=== PATIENT | female | born 1990 | race African-American/Black ===

== ENCOUNTER 2016-12-03 11:33 | Emergency (ER) | payer SELFPAY ==
[2016-12-03 11:39] VITALS: BP 125/82
[2016-12-03] MEDS ORDERED: OXYCODONE HCL IR 5 MG TABLET PO ONE (12:14)
--- NOTE | 2016-12-03 12:15 | ER Document Report ---
ED GI/ - General Chief Complaint: Vaginal Bleeding Stated Complaint: HEAVY VAGINAL BLEEDING Mode of Arrival: Ambulatory Information source: Patient Notes: Patient presents complaining of vaginal bleeding for the past 3 days that is typical of her usual menstrual cycle. Patient states she does occasionally pass clots which is typical of her usual menses. Patient denies any urinary symptoms, vaginal discharge or any concern for pelvic infection. Patient states that she has a history of ovarian cysts and occasionally will have pelvic pain like this with her menstrual cycles. Patient suspects that she may have an ovarian cyst. Patient states that she does have a supervisor cellars appointment in 4 days. Patient states that she took Tylenol at home this morning at 10:30 without relief of her pain symptoms. TRAVEL OUTSIDE OF THE [place] IN LAST 30 DAYS: No - HPI Patient complains to provider of: Pelvic pain, Vaginal bleeding. No: Vaginal discharge Onset: Other - 3 days Timing/Duration: Persistent Quality of pain: Cramping Pain Level: 4 Location: Pelvis Vaginal bleeding (Compared to normal period): Similar, Passing clots Associated symptoms: denies: Dysuria, Fever, Nausea, Urinary hesitancy, Urinary frequency, Urinary retention, Urinary urgency, Vaginal discharge, Vomiting Exacerbated by: Denies Relieved by: Denies Similar symptoms previously: Yes Recently seen / treated by doctor: No - Related Data Allergies/Adverse Reactions: ibuprofen [From Motrin] Allergy (Severe, Verified 07/15/16 12:12) Hives tramadol [Tramadol] Allergy (Unknown, Verified 07/15/16 12:12) doxycycline [Doxycycline] Adverse Reaction (Verified 07/15/16 12:12) VOMITING Past Medical History - General Information source: Patient Last Menstrual Period: current - Social History Smoking Status: Current Every Day Smoker Chew tobacco use (# tins/day): No Frequency of alcohol use: Social Drug Abuse: None Occupation: none Family History: Arthritis, CAD, CVA, DM, Hyperlipidemia, Hypertension, Malignancy, Thyroid Disfunction. denies: COPD Patient has suicidal ideation: No Patient has homicidal ideation: No - Past Medical History Cardiac Medical History: Denies: Hx Heart Attack, Hx Hypertension Neurological Medical History: Reports: Hx Migraine. Denies: Hx Seizures Renal/ Medical History: Reports: Hx Ovarian Cysts. Denies: Hx Peritoneal Dialysis Musculoskeltal Medical History: Denies Hx Arthritis, Reports Hx Musculoskeletal Trauma Psychiatric Medical History: Reports: Hx Anxiety Past Surgical History: Reports: Hx Abdominal Surgery - exploratory lap, Hx Section - 08/19/2009, 12/06/11, Hx Gynecologic Surgery - ceclage x2 - Immunizations Immunizations up to date: Yes Hx Diphtheria, Pertussis, Tetanus Vaccination: Yes Review of Systems - Review of Systems Constitutional: No symptoms reported. denies: Fever, Recent illness EENT: No symptoms reported Cardiovascular: No symptoms reported. denies: Chest pain, Syncope Respiratory: No symptoms reported. denies: Cough, Short of breath Gastrointestinal: Abdominal pain - Lower pelvic. denies: Diarrhea, Nausea, Vomiting Genitourinary: No symptoms reported. denies: Dysuria, Flank pain Female Genitourinary: Vaginal bleeding. denies: , Vaginal discharge Musculoskeletal: No symptoms reported. denies: Back pain Skin: No symptoms reported Hematologic/Lymphatic: No symptoms reported Neurological/Psychological: No symptoms reported Physical Exam - Vital signs Vitals: Temp Pulse Resp BP Pulse Ox 97.7 F 76 16 125/82 100 12/03/16 11:36 12/03/16 11:36 12/03/16 11:36 12/03/16 11:36 12/03/16 11:36 - General General appearance: Appears well, Alert In distress: None - HEENT Head: Normocephalic, Atraumatic Eyes: Normal Nasal: Normal Mouth/Lips: Normal Mucous membranes: Normal Neck: Normal, Supple. No: Lymphadenopathy - Respiratory Respiratory status: No respiratory distress Chest status: Nontender Breath sounds: Normal. No: Rales, Rhonchi, Stridor, Wheezing Chest palpation: Normal - Cardiovascular Rhythm: Regular Heart sounds: S1 appreciated, S2 appreciated Murmur: No - Abdominal Inspection: Normal Distension: No distension Bowel sounds: Normal Tenderness: Tender - Lower pelvic tenderness Organomegaly: No organomegaly - Back Back: Normal, Nontender. No: CVA tenderness, Vertebra tenderness - Extremities General upper extremity: Normal inspection, Normal strength General lower extremity: Normal inspection, Normal strength - Neurological Neuro grossly intact: Yes Cognition: Normal Reagan Coma Scale Eye Opening: Spontaneous [place] Coma Scale Verbal: Oriented [place] Coma Scale Motor: Obeys Commands [place] Coma Scale Total: 15 - Psychological Associated symptoms: Normal affect, Normal mood - Skin Skin Temperature: Warm Skin Moisture: Dry Skin Color: Normal Course - Re-evaluation Re-evalutation: 12/03/16 13:[address] Espinosa regarding patient presentation and plan for discharge. Agrees with discharge plan of care. Review of previous ER visits demonstrates that patient has been evaluated in the past for chronic painful conditions and was sent a certified letter at home advising patient of our chronic pain control policy. 12/03/16 14:07 Patient requesting narcotic pain medication for her symptoms. Patient advised that I will be unable to manage her chronic pain due to her ovarian cysts and dysmenorrhea with narcotic pain medication and that patient will need to take Tylenol [id number] as directed given her allergies to tramadol as well as NSAIDs. Patient upset regarding discharge plan of care. Patient states that she should adjusted at home since she's not getting anything here. Patient insistent that she does not have any chronic painful condition, although had previously reported to RN that she was only here for narcotic pain control for her pain that she has with her ovarian cyst. - Vital Signs Vital signs: Temp Pulse Resp BP Pulse Ox 97.7 F 76 16 125/82 100 12/03/16 11:36 12/03/16 11:36 12/03/16 11:36 12/03/16 11:36 12/03/16 11:36 - Laboratory Result Diagrams: 12/03/16 12:36 12/03/16 12:36 Laboratory results interpreted by me: Labs- Entire Visit 12/03/16 12/03/16 12/03/16 12:36 12:36 12:36 WBC 4.3 RBC 4.88 Hgb 13.5 Hct 41.7 MCV 85 MCH 27.7 MCHC 32.4 RDW 14.0 Plt Count 238 Seg Neutrophils % 42.7 Lymphocytes % 43.1 Monocytes % 12.9 Eosinophils % 0.8 Basophils % 0.5 Absolute Neutrophils 1.8 Absolute Lymphocytes 1.9 Absolute Monocytes 0.6 Absolute Eosinophils 0.0 Absolute Basophils 0.0 Sodium 144.6 Potassium 4.3 Chloride 105 Carbon Dioxide 27 Anion Gap 13 BUN 10 Creatinine 0.73 Est GFR ( Amer) > 60 Est GFR (Non-Af Amer) > 60 Glucose 87 Calcium 9.9 Total Bilirubin 0.8 Direct Bilirubin 0.2 Indirect Bilirubin Not Reportable Neonat Total Bilirubin Not Reportable AST 24 ALT 31 Alkaline Phosphatase 71 Total Protein 7.6 Albumin 4.6 Serum HCG, Qual NEGATIVE 12/03/16 18:49 Labs- Entire Visit 12/03/16 12/03/16 12/03/16 12:36 12:36 12:36 WBC 4.3 RBC 4.88 Hgb 13.5 Hct 41.7 MCV 85 MCH 27.7 MCHC 32.4 RDW 14.0 Plt Count 238 Seg Neutrophils % 42.7 Lymphocytes % 43.1 Monocytes % 12.9 Eosinophils % 0.8 Basophils % 0.5 Absolute Neutrophils 1.8 Absolute Lymphocytes 1.9 Absolute Monocytes 0.6 Absolute Eosinophils 0.0 Absolute Basophils 0.0 Sodium 144.6 Potassium 4.3 Chloride 105 Carbon Dioxide 27 Anion Gap 13 BUN 10 Creatinine 0.73 Est GFR ( Amer) > 60 Est GFR (Non-Af Amer) > 60 Glucose 87 Calcium 9.9 Total Bilirubin 0.8 Direct Bilirubin 0.2 Indirect Bilirubin Not Reportable Neonat Total Bilirubin Not Reportable AST 24 ALT 31 Alkaline Phosphatase 71 Total Protein 7.6 Albumin 4.6 Serum HCG, Qual NEGATIVE Discharge - Discharge Clinical Impression: Dysmenorrhea, Hx of ovarian cyst Condition: Stable Disposition: HOME, SELF-CARE Instructions: Dysmenorrhea ([facility]), Acetaminophen Additional Instructions: Return immediately for any new or worsening symptoms Followup with your primary care provider, Dr Davis, call tomorrow to make a followup appointment Referrals: [facility] [Provider Group] - Follow up as needed
[2016-12-03 12:53] LABS: ABSOLUTE LYMPHOCYTES (AUTO) 1.9 10^3/uL (0.5-4.7); ABSOLUTE MONOCYTES (AUTO) 0.6 10^3/uL (0.1-1.4); ABSOLUTE NEUT (AUTO) 1.8 10^3/uL (1.7-8.2); BASOPHILS % (AUTO) 0.5 % (0-2); EOSINOPHILS % (AUTO) 0.8 % (0-6); HEMATOCRIT 41.7 % (36.0-47.0); HEMOGLOBIN 13.5 g/dL (12.0-15.5); HGB HCT DIFFERENCE -1.2; LYMPHOCYTES % (AUTO) 43.1 % (13-45); MEAN CORPUSCULAR HEMOGLOBIN 27.7 pg (27.0-33.4); MEAN CORPUSCULAR HGB CONC 32.4 g/dL (32.0-36.0); MEAN CORPUSCULAR VOLUME 85 fl (80-97); MONOCYTES % (AUTO) 12.9 % (3-13); RED BLOOD COUNT 4.88 10^6/uL (3.72-5.28); SEGMENTED NEUTROPHILS % (AUTO) 42.7 % (42-78); WHITE BLOOD COUNT 4.3 10^3/uL (4.0-10.5)
[2016-12-03 13:12] LABS: BLOOD UREA NITROGEN 10 mg/dL (7-20); CALCIUM 9.9 mg/dL (8.4-10.2); POTASSIUM 4.3 mmol/L (3.6-5.0)
[2016-12-03 13:48] LABS: ALANINE AMINOTRANSFERASE 31 U/L (9-52); ALBUMIN 4.6 g/dL (3.5-5.0); ALKALINE PHOSPHATASE 71 U/L (38-126); ANION GAP 13 (5-19); ASPARTATE AMINO TRANSFERASE 24 U/L (14-36); BILIRUBIN,DIRECT 0.2 mg/dL (0.0-0.4); BILIRUBIN,TOTAL 0.8 mg/dL (0.2-1.3); CARBON DIOXIDE 27 mmol/L (22-30); CHLORIDE 105 mmol/L (98-107); CREATININE RESULT 0.73 mg/dL (0.52-1.25); GLUCOSE 87 mg/dL (75-110); SODIUM 144.6 mmol/L (137-145); TOTAL PROTEIN 7.6 g/dL (6.3-8.2)
== END 2016-12-03 14:07 | disposition home or self-care (01) ==
LOC: ER 11:33
DX: N94.6 Dysmenorrhea, unspecified (principal); N83.209 Unspecified ovarian cyst, unspecified side; G89.29 Other chronic pain; R10.2 Pelvic and perineal pain; F17.200 Nicotine dependence, unspecified, uncomplicated; Z87.42 Personal history of other diseases of the female genital tract; Z98.890 Other specified postprocedural states; Z88.6 Allergy status to analgesic agent; Z88.5 Allergy status to narcotic agent
CPT/HCPCS: 36415; 80053; 84703; 85025; 99284

== ENCOUNTER 2017-12-17 09:32 | Emergency (ER) | payer SELFPAY ==
--- NOTE | 2017-12-17 09:56 | ER Document Report ---
ED GI/ - General Chief Complaint: Vaginal Bleeding Stated Complaint: VAGINAL BLEEDING, PELVIC PAIN Time Seen by Provider: 12/17/17 09:56 Mode of Arrival: Ambulatory Information source: Patient Notes: 27-year-old female complaining of heavy vaginal bleeding and severe cramps that started last night. She denies sex for 4 months, no control, smoker, no alcohol or drugs, , 2 cerclages, 2 C-sections, menses started at the appropriate time. No fever or chills. No vaginal discharge. She did feel like she might possibly have had a urinary tract infection with some cloudy smelly urine past few days. TRAVEL OUTSIDE OF THE [place] IN LAST 30 DAYS: No - Related Data Allergies/Adverse Reactions: ibuprofen [From Motrin] Allergy (Severe, Verified 12/17/17 09:49) Hives tramadol [Tramadol] Allergy (Unknown, Verified 12/17/17 09:49) doxycycline [Doxycycline] Adverse Reaction (Verified 12/17/17 09:49) VOMITING Past Medical History - General Information source: Patient - Social History Smoking Status: Current Every Day Smoker Chew tobacco use (# tins/day): No Frequency of alcohol use: Rare Drug Abuse: None Lives with: Family Family History: Arthritis, CAD, CVA, DM, Hyperlipidemia, Hypertension, Malignancy, Thyroid Disfunction Patient has suicidal ideation: No Patient has homicidal ideation: No Neurological Medical History: Reports: Hx Migraine Renal/ Medical History: Reports: Hx Ovarian Cysts Musculoskeltal Medical History: Reports Hx Musculoskeletal Trauma Psychiatric Medical History: Reports: Hx Anxiety Past Surgical History: Reports: Hx Abdominal Surgery - exploratory lap, Hx Section - 08/19/2009, 12/06/11, Hx Gynecologic Surgery - ceclage x2 - Immunizations Immunizations up to date: Yes Hx Diphtheria, Pertussis, Tetanus Vaccination: Yes Review of Systems - Review of Systems Constitutional: No symptoms reported EENT: No symptoms reported Cardiovascular: No symptoms reported Respiratory: No symptoms reported Gastrointestinal: No symptoms reported Genitourinary: No symptoms reported Female Genitourinary: See HPI Musculoskeletal: No symptoms reported Skin: No symptoms reported Hematologic/Lymphatic: No symptoms reported Neurological/Psychological: No symptoms reported Physical Exam - Vital signs Vitals: Temp Pulse Resp BP Pulse Ox 98.0 F 77 20 118/70 100 12/17/17 09:39 12/17/17 09:39 12/17/17 09:39 12/17/17 09:39 12/17/17 09:39 Interpretation: Normal - General General appearance: Appears well, Alert - HEENT Head: Normocephalic, Atraumatic Eyes: Normal Pupils: PERRL - Respiratory Respiratory status: No respiratory distress Chest status: Nontender Breath sounds: Normal Chest palpation: Normal - Cardiovascular Rhythm: Regular Heart sounds: Normal auscultation Murmur: No - Abdominal Inspection: Normal Distension: No distension Bowel sounds: Normal Tenderness: Tender - Mild suprapubic Organomegaly: No organomegaly - Back Back: Normal, Nontender. No: CVA tenderness - Extremities General upper extremity: Normal inspection, Nontender, Normal color, Normal ROM , Normal temperature General lower extremity: Normal inspection, Nontender, Normal color, Normal ROM , Normal temperature, Normal weight bearing. No: Homero's sign - Neurological Neuro grossly intact: Yes Cognition: Normal Orientation: AAOx4 [place] Coma Scale Eye Opening: Spontaneous [place] Coma Scale Verbal: Oriented [place] Coma Scale Motor: Obeys Commands [place] Coma Scale Total: 15 Speech: Normal Motor strength normal: LUE, RUE, LLE, RLE Sensory: Normal - Psychological Associated symptoms: Normal affect, Normal mood - Skin Skin Temperature: Warm Skin Moisture: Dry Skin Color: Normal Course - Vital Signs Vital signs: Temp Pulse Resp BP Pulse Ox 98.0 F 77 20 118/70 100 12/17/17 09:39 12/17/17 09:39 12/17/17 09:39 12/17/17 09:39 12/17/17 09:39 - Laboratory Result Diagrams: 12/17/17 10:12 Laboratory results interpreted by me: 12/17/17 12/17/17 10:12 10:12 Monocytes % 13.8 H Urine Blood LARGE H Discharge - Discharge Clinical Impression: Pelvic pain, Vaginal bleeding, Trichomonas, Bacterial vaginosis Condition: Good Disposition: HOME, SELF-CARE Instructions: Pelvic Pain ([facility]), Acetaminophen, Metronidazole ([facility]), Rocephin ( [facility]), Azithromycin ([facility]), Antinausea Medication ([facility]), Vaginosis, Bacterial ([facility] ) Additional Instructions: see director global intelligence if persists to er if worse sex partner needs treatment for trichomonas Call me in 3 hours for the gonorrhea and Chlamydia tests at [phone] Prescriptions: Hydrocodone Bit/Acetaminophen [Hydrocodon-Acetaminophen 5-325] 1 each PO Q4HP PRN #7 tablet PRN Reason: Metronidazole 500 mg PO BID #14 tablet Forms: Return to Work
[2017-12-17] MEDS ORDERED: ACETAMINOPHEN 325 MG TABLET PO ONE ×2 (10:07→10:08)
[2017-12-17 10:46] LABS: APPEARANCE,URINE CLEAR; BILIRUBIN,URINE NEGATIVE (NEGATIVE); COLOR,URINE YELLOW; GLUCOSE, URINE NEGATIVE (NEGATIVE); KETONES,URINE NEGATIVE (NEGATIVE); LEUKOCYTE ESTERASE,URINE NEGATIVE (NEGATIVE); NITRITE,URINE NEGATIVE (NEGATIVE); PROTEIN,URINE NEGATIVE (NEGATIVE); URINE SPECIFIC GRAVITY 1.024; UROBILINOGEN,URINE NEGATIVE mg/dL (<2.0)
[2017-12-17 10:57] LABS: ABSOLUTE EOSINOPHILS # (AUTO) 0.1 10^3/uL (0.0-0.6); ABSOLUTE LYMPHOCYTES (AUTO) 2.1 10^3/uL (0.5-4.7); ABSOLUTE MONOCYTES (AUTO) 0.7 10^3/uL (0.1-1.4); ABSOLUTE NEUT (AUTO) 2.3 10^3/uL (1.7-8.2); BASOPHILS % (AUTO) 0.3 % (0-2); EOSINOPHILS % (AUTO) 1.6 % (0-6); HEMOGLOBIN 13.2 g/dL (12.0-15.5); LYMPHOCYTES % (AUTO) 39.9 % (13-45); MEAN CORPUSCULAR HEMOGLOBIN 28.6 pg (27.0-33.4); MEAN CORPUSCULAR HGB CONC 33.1 g/dL (32.0-36.0); MEAN CORPUSCULAR VOLUME 86 fl (80-97); MONOCYTES % (AUTO) 13.8 % (3-13); PLATELET COUNT 267 10^3/uL (150-450); RED BLOOD COUNT 4.64 10^6/uL (3.72-5.28); RED CELL DISTRIBUTION WIDTH 13.6 % (11.5-14.0); SEGMENTED NEUTROPHILS % (AUTO) 44.4 % (42-78); TOTAL CELLS COUNTED % (AUTO) 100 %; WHITE BLOOD COUNT 5.2 10^3/uL (4.0-10.5)
[2017-12-17 11:01] LABS: BACTERIA (WET MOUNT) 4+ BACTERIA SEEN; EPITHELIALS (WET MOUNT) 4+ EPITHELIALS SEEN; RBCS (WET MOUNT) 4+ RBCS SEEN; T.VAGINALIS (WET MOUNT) TRICHOMONAS SEEN; WBCS (WET MOUNT) FEW WBCS SEEN; YEAST (WET MOUNT) NO YEAST SEEN
[2017-12-17] MEDS ORDERED: ONDANSETRON 4 MG TAB.RAPDIS PO ONE (11:21)
[2017-12-17] MEDS ORDERED: AZITHROMYCIN 250 MG TABLET PO ONE (11:21)
[2017-12-17] MEDS ORDERED: METRONIDAZOLE 500 MG TABLET PO ONE (11:21)
[2017-12-17] MEDS ORDERED: CEFTRIAXONE INJ 250 MG VIAL IM ONE (11:21)
[2017-12-17] MEDS ORDERED: HYDROCODONE/ACETAMINOPHEN 5-325 MG TABLET PO ONE (11:24)
[2017-12-17 11:44] VITALS: BP 120/72
[2017-12-17 13:01] LABS: CHLAM PCR NOT DETECTED (NOT DETECT); GON PCR NOT DETECTED (NOT DETECT)
== END 2017-12-17 11:44 | disposition home or self-care (01) ==
LOC: ER 09:32
DX: A59.00 Urogenital trichomoniasis, unspecified (principal); B96.89 Other specified bacterial agents as the cause of diseases classified elsewhere; N76.0 Acute vaginitis; R10.2 Pelvic and perineal pain; N93.8 Other specified abnormal uterine and vaginal bleeding; F17.200 Nicotine dependence, unspecified, uncomplicated
CPT/HCPCS: 99284; 96372; 36415; 87086; 87210; 84703; 85025; 81001; 87491; 87591; S0119; J0696

== ENCOUNTER 2018-02-24 12:53 | Emergency (ER) | payer SELFPAY ==
[2018-02-24 13:00] VITALS: BP 129/86
--- NOTE | 2018-02-24 13:34 | ER Document Report ---
HPI - HPI Patient complains to provider of: Swelling and pain with lymph nodes on the left side Onset: Yesterday Onset/Duration: Gradual Pain Level: 2 Context: 27-year-old female with a history of trichomonas is concerned that she might have it again because of the discharge with an odor. She also has inguinal lymph nodes and swelling on the left side that is painful. It got worse today. She works at [employer]. Associated Symptoms: None Exacerbated by: Movement, Walking Relieved by: Denies Similar symptoms previously: No Recently seen / treated by doctor: No - ROS ROS below otherwise negative: Yes Systems Reviewed and Negative: Yes All other systems reviewed and negative - REPRODUCTIVE Reproductive: DENIES: : Past Medical History - General Information source: Patient - Social History Smoking Status: Never Smoker Frequency of alcohol use: None Drug Abuse: None Lives with: Family Family History: Arthritis, CAD, CVA, DM, Hyperlipidemia, Hypertension, Malignancy, Thyroid Disfunction Neurological Medical History: Reports: Hx Migraine Renal/ Medical History: Reports: Hx Ovarian Cysts Musculoskeltal Medical History: Reports Hx Musculoskeletal Trauma Psychiatric Medical History: Reports: Hx Anxiety Past Surgical History: Reports: Hx Abdominal Surgery - exploratory lap, Hx Section - 08/19/2009, 12/06/11, Hx Gynecologic Surgery - ceclage x2 - Immunizations Immunizations up to date: Yes Hx Diphtheria, Pertussis, Tetanus Vaccination: Yes Vertical Provider Document - CONSTITUTIONAL Agree With Documented VS: Yes Exam Limitations: No Limitations General Appearance: No Apparent Distress - INFECTION CONTROL TRAVEL OUTSIDE OF THE [place] IN LAST 30 DAYS: No - GI/ABDOMEN Gastrointestinal: Abdomen Soft, Abdomen Non-Tender, No Organomegaly Notes: Few left inguinal lymph nodes - REPRODUCTIVE Notes: Left inferior introitus Bartholin's gland abscess - NEURO Level of Consciousness: Alert - DERM Integumentary: No Rash Course - Re-evaluation Re-evalutation: 02/24/18 15:09 wet mount shows BV, possilble uti, cx semt. pt wants to take tx for possible gonorrhea and chalmydia - Vital Signs Vital signs: Temp Pulse Resp BP Pulse Ox 98.1 F 112 H 16 129/86 H 98 02/24/18 12:58 02/24/18 12:58 02/24/18 12:58 02/24/18 12:58 02/24/18 12:58 Procedures - Incision and Drainage Left Labia Time completed: 15:02 Type: Simple Anesthetic type: 1% Lidocaine mL's of anesthetic: 3 Blade size: 11 I&D procedure: Iodoform packing placed Incision Method: Incision made by scalpel Amount/type of drainage: large pus Discharge - Discharge Clinical Impression: I and D bartholin abscess, Bacterial vaginosis Urinary tract infection Qualifiers: Urinary tract infection type: site unspecified Hematuria presence: without hematuria Qualified Code(s): N39.0 - Urinary tract infection, site not specified Condition: Good Disposition: HOME, SELF-CARE Instructions: Azithromycin ([facility]), Bartholin Gland Cyst or Abscess ([facility]), Metronidazole ([facility]), Rocephin ([facility]), Trimethoprim-Sulfa ([facility]), Urinary Tract Infection ([facility]) Additional Instructions: Warm sitz bath twice a day and soap and water Septra as an antibiotic for the Bartholin's gland abscess Metronidazole for antibiotic for bacterial vaginosis Call me in 3 hours for the STD culture results at [phone] tylenol up to 4000mg per day for pain Prescriptions: Metronidazole 500 mg PO BID #14 tablet Sulfamethoxazole/Trimethoprim [Sulfamethoxazole-Tmp Ds Tablet] 1 each PO BID # 14 tablet Forms: Return to Work
[2018-02-24] MEDS ORDERED: LIDOCAINE 4%/TETRACAINE 0.5%/EPI 0.18% 5 ML TOPICAL SOLN TOP ONE (14:00)
[2018-02-24] MEDS ORDERED: ACETAMINOPHEN 325 MG TABLET PO ONE (14:00)
[2018-02-24] MEDS ORDERED: SULFAMETHOXAZOLE/TRIMETHOPRIM 800-160 MG TABLET PO ONE (14:02)
[2018-02-24 14:03] LABS: BACTERIA (WET MOUNT) 4+ BACTERIA SEEN; EPITHELIALS (WET MOUNT) 4+ EPITHELIALS SEEN; T.VAGINALIS (WET MOUNT) NO TRICHOMONAS SEEN; WBCS (WET MOUNT) FEW WBCS SEEN; YEAST (WET MOUNT) NO YEAST SEEN
[2018-02-24 14:08] LABS: APPEARANCE,URINE CLOUDY; BILIRUBIN,URINE SMALL (NEGATIVE); COLOR,URINE AMBER; GLUCOSE, URINE NEGATIVE (NEGATIVE); KETONES,URINE TRACE mg/dL (NEGATIVE); LEUKOCYTE ESTERASE,URINE MODERATE (NEGATIVE); NITRITE,URINE NEGATIVE (NEGATIVE); PROTEIN,URINE 100 mg/dL (NEGATIVE); URINE SPECIFIC GRAVITY 1.033
[2018-02-24] MEDS ORDERED: METRONIDAZOLE 500 MG TABLET PO ONE (14:27)
[2018-02-24] MEDS ORDERED: ONDANSETRON 4 MG TAB.RAPDIS PO ONE (14:27)
[2018-02-24] MEDS ORDERED: LIDOCAINE 1% INJ-PF (10 MG/ML) 30 ML SDV INJ ONE (15:01)
[2018-02-24] MEDS ORDERED: AZITHROMYCIN 250 MG TABLET PO ONE (15:01)
[2018-02-24] MEDS ORDERED: CEFTRIAXONE INJ 250 MG VIAL IM ONE (15:01)
[2018-02-24 15:28] LABS: CHLAM PCR NOT DETECTED (NOT DETECT); GON PCR NOT DETECTED (NOT DETECT)
== END 2018-02-24 15:18 | disposition home or self-care (01) ==
LOC: ER 12:53
PROC: 0U9L0ZZ Drainage of Vestibular Gland, Open Approach (ICD-10-PCS; principal; 2018-02-24)
DX: N75.1 Abscess of Bartholin's gland (principal); N76.0 Acute vaginitis; B96.89 Other specified bacterial agents as the cause of diseases classified elsewhere; N39.0 Urinary tract infection, site not specified
CPT/HCPCS: 99283; 87086; 87210; 81025; 87088; 81001; 87186; 87491; 87591; 56420; A6266; S0119; J3490 ×2; J0696

== ENCOUNTER 2018-07-13 21:16 | Emergency (ER) | payer SELFPAY ==
[2018-07-13] MEDS ORDERED: ACETAMINOPHEN 325 MG TABLET PO ONE (23:35)
--- NOTE | 2018-07-13 23:38 | ER Document Report ---
ED General - General Chief Complaint: Groin Pain Stated Complaint: ABDOMINAL PAIN Time Seen by Provider: 07/13/18 23:06 Notes: Patient is a 28-year-old female without chronic medical problems who presents with several hours of pain to her left mid abdomen. The patient states that she was pulling a cart filled with heavy meat product at work. She states that she fell descending pulled or tore in her mid abdomen shortly prior to arrival and since that time that she has had a mild, throbbing, aching pain to the area. She has not tried any to improve the pain. Ranging her abdominal wall worsens the pain. No history of similar injury in the past. She has not noted any swelling or bruising to the area. No direct trauma to the area. She has not seen her general doctor regarding today's concerns. She denies any associated vomiting, dysuria, vaginal bleeding, chest pain or shortness of breath. She has an abdominal surgical history of 2 prior C-sections but no additional abdominal surgeries. She has no history of hernias. TRAVEL OUTSIDE OF THE [place] IN LAST 30 DAYS: No - Related Data Allergies/Adverse Reactions: ibuprofen [From Motrin] Allergy (Severe, Verified 07/13/18 21:16) Hives tramadol [Tramadol] Allergy (Unknown, Verified 07/13/18 21:16) doxycycline [Doxycycline] Adverse Reaction (Verified 07/13/18 21:16) VOMITING Past Medical History - General Information source: Patient - Social History Smoking Status: Current Every Day Smoker Frequency of alcohol use: None Drug Abuse: None Lives with: Family Family History: Arthritis, CAD, CVA, DM, Hyperlipidemia, Hypertension, Malignancy, Thyroid Disfunction Patient has suicidal ideation: No Patient has homicidal ideation: No - Past Medical History Cardiac Medical History: Denies: Hx Heart Attack, Hx Hypertension Neurological Medical History: Reports: Hx Migraine. Denies: Hx Seizures Renal/ Medical History: Reports: Hx Ovarian Cysts. Denies: Hx Peritoneal Dialysis Musculoskeletal Medical History: Denies Hx Arthritis, Reports Hx Musculoskeletal Trauma Psychiatric Medical History: Reports: Hx Anxiety Past Surgical History: Reports: Hx Abdominal Surgery - exploratory lap, Hx Section - 08/19/2009, 12/06/11, Hx Gynecologic Surgery - ceclage x2 - Immunizations Immunizations up to date: Yes Hx Diphtheria, Pertussis, Tetanus Vaccination: Yes Review of Systems - Review of Systems Notes: Constitutional: Negative for fever. HENT: Negative for sore throat. Eyes: Negative for visual changes. Cardiovascular: Negative for chest pain. Respiratory: Negative for shortness of breath. Gastrointestinal: Positive for abdominal pain Genitourinary: Negative for dysuria. Musculoskeletal: Negative for back pain. Skin: Negative for rash. Neurological: Negative for headaches, weakness or numbness. 10 point ROS negative except as marked above and in HPI. Physical Exam - Vital signs Vitals: Temp Pulse Resp BP Pulse Ox 97.7 F 96 14 124/74 99 07/13/18 21:20 07/13/18 21:20 07/13/18 21:20 07/13/18 21:20 07/13/18 21:20 Interpretation: Normal Notes: PHYSICAL EXAMINATION: GENERAL: Well-appearing, well-nourished and in no acute distress. HEAD: Atraumatic, normocephalic. EYES: Pupils equal round and reactive to light, extraocular movements intact, sclera anicteric, conjunctiva are normal. ENT: nares patent, oropharynx clear without exudates. Moist mucous membranes. NECK: Normal range of motion, supple without lymphadenopathy LUNGS: Breath sounds clear to auscultation bilaterally and equal. No wheezes rales or rhonchi. HEART: Regular rate and rhythm without murmurs ABDOMEN: Soft, nontender, normoactive bowel sounds. No guarding, no rebound. No masses appreciated. EXTREMITIES: Normal range of motion, no pitting or edema. No cyanosis. NEUROLOGICAL: No focal neurological deficits. Moves all extremities spontaneously and on command. PSYCH: Normal mood, normal affect. SKIN: Warm, Dry, normal turgor, no rashes or lesions noted. Course - Re-evaluation Re-evalutation: 07/13/18 23:35 Patient presents with mid abdominal discomfort that she states that started after she was pulling a heavy weight while at work. She states that it felt like something pulled. There is no visible swelling or hernia on exam. Suspect a partial rectus abdominis tear. Clinical history is not consistent with any intra-abdominal pathology. No indication for labs or imaging. Have advised conservative, symptom medic management at home, reduce weight load at work. At this time will discharge with return precautions and follow-up recommendations. Verbal discharge instructions given a the bedside and opportunity for questions given. Medication warnings reviewed. Patient is in agreement with this plan and has verbalized understanding of return precautions and the need for primary care follow-up in the next 24-72 hours. - Vital Signs Vital signs: Temp Pulse Resp BP Pulse Ox 98.3 F 81 16 120/68 99 07/13/18 23:40 07/13/18 23:40 07/13/18 23:40 07/13/18 23:40 07/13/18 23:40 Discharge - Discharge Clinical Impression: Strain of rectus abdominis muscle Qualifiers: Encounter type: initial encounter Qualified Code(s): S39.011A - Strain of muscle, fascia and tendon of abdomen, initial encounter Condition: Good Disposition: HOME, SELF-CARE Additional Instructions: You likely have a strain of your rectus abdominis muscle. Your symptoms should improve over the next 2-3 weeks. Apply ice to the area as needed for discomfort. You make take Tylenol. An abdominal binder could also be used. Do not lift over 10 pounds for the next 2 weeks or until your symptoms resolve. Follow-up with your primary doctor within the next 24-40 hours. Return immediately if you notice swelling to the area, bruising, have progressively worsening pain, develop vomiting, fever, or any other symptoms that are worrisome to you. Forms: Special Work Note, Return to Work
[2018-07-14 00:39] VITALS: BP 120/68
== END 2018-07-13 23:40 | disposition home or self-care (01) ==
LOC: ER 21:16
DX: S39.011A Strain of muscle, fascia and tendon of abdomen, initial encounter (principal); X50.0XXA Overexertion from strenuous movement or load, initial encounter; Y99.0 Civilian activity done for income or pay; F17.200 Nicotine dependence, unspecified, uncomplicated; Z88.6 Allergy status to analgesic agent; Z88.5 Allergy status to narcotic agent
CPT/HCPCS: 99283

== ENCOUNTER 2018-11-07 12:24 | Emergency (ER) | payer SELFPAY ==
[2018-11-07 12:35] VITALS: BP 105/65
[2018-11-07 14:59] LABS: APPEARANCE,URINE SLIGHTLY-CLOUDY; BILIRUBIN,URINE NEGATIVE (NEGATIVE); COLOR,URINE YELLOW; GLUCOSE, URINE NEGATIVE (NEGATIVE); KETONES,URINE NEGATIVE (NEGATIVE); LEUKOCYTE ESTERASE,URINE SMALL (NEGATIVE); NITRITE,URINE NEGATIVE (NEGATIVE); PROTEIN,URINE NEGATIVE (NEGATIVE); URINE SPECIFIC GRAVITY 1.006; UROBILINOGEN,URINE NEGATIVE mg/dL (<2.0)
--- NOTE | 2018-11-07 15:10 | RADIOLOGY REPORT (SQ) ---
EXAM DESCRIPTION: U/S OB LIMITED COMPLETED DATE/TIME: 11/07/2018 2:14 pm REASON FOR STUDY: , cramping pain COMPARISON: None. TECHNIQUE: Limited transabdominal grayscale ultrasound for evaluation of specific requested obstetri fredi parameters. LIMITATIONS: None. FINDINGS: Single intrauterine . EGA: 20 weeks, 6 days EFW: 350 g CERVICAL LENGTH: 1.9 cm Closed. KRANTHI: adequate amount FHR: 155 beats per minute. PRESENTATION: Cephalic. PLACENTA: Anterior ANATOMY: Not assessed OTHER: No other significant findings. IMPRESSION: 1. Single intrauterine gestation at sonographic gestational age of 20 weeks, 6 days. 2. Lens Shaper Grinder notes uterine contractions throughout the examination. Correlate clinically. 3. Cervical length 1.9 cm. Closed cervical os. Trimester of : Second trimester - 13 weeks 1 day to 27 weeks 6 days. TECHNICAL DOCUMENTATION: JOB ID: [id number] [employer]- All Rights Reserved Reading location - IP/workstation name: [email or web address]
== END 2018-11-07 14:37 | disposition admitted as inpatient to this hospital (09) ==
LOC: ER 12:24
DX: O26.892 Other specified pregnancy related conditions, second trimester (principal); R10.9 Unspecified abdominal pain; Z3A.20 20 weeks gestation of pregnancy
CPT/HCPCS: 76815; 81001

== ENCOUNTER 2018-11-07 14:33 | Outpatient (CLI) | payer SELFPAY ==
[2018-11-07 17:01] LABS: URINE AMPHETAMINES SCREEN NEGATIVE; URINE BARBITURATES SCREEN NEGATIVE; URINE BENZODIAZEPINES SCREEN NEGATIVE; URINE COCAINE SCREEN NEGATIVE; URINE METHADONE SCREEN NEGATIVE; URINE PHENCYCLIDINE SCREEN NEGATIVE
[2018-11-07 17:08] LABS: URINE MARIJUANA (THC) SCREEN UNCONFIRMED POSITIVE
[2018-11-07 17:28] LABS: ABSOLUTE BASOPHILS # (AUTO) 0.1 10^3/uL (0.0-0.2); ABSOLUTE EOSINOPHILS # (AUTO) 0.1 10^3/uL (0.0-0.6); ABSOLUTE LYMPHOCYTES (AUTO) 2.4 10^3/uL (0.5-4.7); ABSOLUTE MONOCYTES (AUTO) 0.7 10^3/uL (0.1-1.4); ABSOLUTE NEUT (AUTO) 6.6 10^3/uL (1.7-8.2); BASOPHILS % (AUTO) 0.5 % (0-2); EOSINOPHILS % (AUTO) 0.9 % (0-6); HEMATOCRIT 35.1 % (36.0-47.0); HEMOGLOBIN 11.8 g/dL (12.0-15.5); LYMPHOCYTES % (AUTO) 24.1 % (13-45); MEAN CORPUSCULAR HGB CONC 33.7 g/dL (32.0-36.0); MEAN CORPUSCULAR VOLUME 86 fl (80-97); MONOCYTES % (AUTO) 7.2 % (3-13); PLATELET COUNT 241 10^3/uL (150-450); RED BLOOD COUNT 4.08 10^6/uL (3.72-5.28); RED CELL DISTRIBUTION WIDTH 13.5 % (11.5-14.0); SEGMENTED NEUTROPHILS % (AUTO) 67.3 % (42-78); TOTAL CELLS COUNTED % (AUTO) 100 %; WHITE BLOOD COUNT 9.8 10^3/uL (4.0-10.5)
[2018-11-07 18:09] LABS: CHLAM PCR DETECTED (NOT DETECT); GON PCR DETECTED (NOT DETECT)
[2018-11-07 18:13] LABS: RUBELLA INTERPRETATION POSITIVE
[2018-11-09 06:38] LABS: HEPATITIS C VIRUS AB <0.1 s/co ratio (0.0-0.9)
[2018-11-09 12:48] LABS: HEPATITS B SURFACE ANTIGEN Negative (Negative)
== END 2018-11-07 17:32 | disposition home or self-care (01) ==
LOC: LC 14:33
PROVIDERS: ATTEND Obstetrics & Gynecology Gynecology
PROC: 4A1HXCZ Monitoring of Products of Conception, Cardiac Rate, External Approach (ICD-10-PCS; principal; 2018-11-07)
DX: O60.02 Preterm labor without delivery, second trimester (principal); Z3A.20 20 weeks gestation of pregnancy
CPT/HCPCS: 86900; 86901; 36415; 86850; 85025; 86762; 86592; 87340; 86701; 80307; 87491; 87591; 86803; 86804; 59899; G0480 ×2; 80349

== ENCOUNTER 2018-11-08 15:43 | Emergency (ER) | payer SELFPAY ==
[2018-11-08] MEDS ORDERED: CEFTRIAXONE INJ 1000 MG VIAL IM ONE (16:40)
[2018-11-08] MEDS ORDERED: AZITHROMYCIN 250 MG TABLET PO ONE (16:40)
[2018-11-08] MEDS ORDERED: LIDOCAINE 1% INJ-PF (10 MG/ML) 30 ML SDV INJ ONE (16:40)
--- NOTE | 2018-11-08 16:45 | ER Document Report ---
ED GI/ - General Chief Complaint: Vaginal Discharge Stated Complaint: ABNORMAL TEST RESULTS Time Seen by Provider: 11/08/18 16:37 Mode of Arrival: Ambulatory Information source: Patient, [facility] Records Notes: Patient is 21 weeks , was seen yesterday with pelvic cramping and came to the emergency room prior to being seen on L&D. An ultrasound was done confirming the patient was over 20 weeks and she was sent upstairs to L&D. While upstairs at L&D she had positive PCR test for gonorrhea and chlamydia. She was told to come to emergency room to have that treated. She states that s he does not have any cramping at this time. TRAVEL OUTSIDE OF THE [place] IN LAST 30 DAYS: No - Related Data Allergies/Adverse Reactions: ibuprofen [From Motrin] Allergy (Severe, Verified 11/08/18 15:53) Hives tramadol [Tramadol] Allergy (Unknown, Verified 11/08/18 15:53) doxycycline [Doxycycline] Adverse Reaction (Verified 11/08/18 15:53) VOMITING Past Medical History - General Information source: Patient, [facility] Records - Social History Smoking Status: Current Every Day Smoker Cigarette use (# per day): Yes Chew tobacco use (# tins/day): No Smoking Education Provided: No Frequency of alcohol use: None Drug Abuse: None Lives with: Family Family History: Arthritis, CAD, CVA, DM, Hyperlipidemia, Hypertension, Malignancy, Thyroid Disfunction Patient has suicidal ideation: No Patient has homicidal ideation: No Neurological Medical History: Reports: Hx Migraine Renal/ Medical History: Reports: Hx Ovarian Cysts, Other - History of incompetent cervix resulting in miscarriage Musculoskeletal Medical History: Reports Hx Musculoskeletal Trauma Psychiatric Medical History: Reports: Hx Anxiety Past Surgical History: Reports: Hx Abdominal Surgery - exploratory lap, Hx Section - 08/19/2009, 12/06/11, Hx Gynecologic Surgery - Cervical cerclage x2 - Immunizations Immunizations up to date: Yes Hx Diphtheria, Pertussis, Tetanus Vaccination: Yes Review of Systems - Review of Systems Constitutional: No symptoms reported EENT: No symptoms reported Cardiovascular: No symptoms reported Respiratory: No symptoms reported Gastrointestinal: No symptoms reported Genitourinary: No symptoms reported Female Genitourinary: See HPI, Musculoskeletal: No symptoms reported Skin: No symptoms reported Hematologic/Lymphatic: No symptoms reported Neurological/Psychological: No symptoms reported Physical Exam - Vital signs Vitals: Temp Pulse Resp BP Pulse Ox 97.8 F 86 16 123/65 99 11/08/18 15:56 11/08/18 15:56 11/08/18 15:56 11/08/18 15:56 11/08/18 15:56 Interpretation: Normal - General General appearance: Appears well, Alert In distress: None - HEENT Head: Normocephalic, Atraumatic Eyes: Normal Pupils: PERRL - Respiratory Respiratory status: No respiratory distress - Cardiovascular Rhythm: Regular - Abdominal Inspection: Gravid female - Back Back: Normal - Extremities General upper extremity: Normal inspection General lower extremity: Normal inspection - Neurological Neuro grossly intact: Yes - Psychological Associated symptoms: Normal affect, Normal mood - Skin Skin Temperature: Warm Skin Moisture: Dry Skin Color: Normal Course - Vital Signs Vital signs: Temp Pulse Resp BP Pulse Ox 98.1 F 72 16 138/66 H 100 11/08/18 17:14 11/08/18 17:14 11/08/18 17:14 11/08/18 17:14 11/08/18 17:14 Discharge - Discharge Clinical Impression: with 21 completed weeks gestation, Gonorrhea affecting in second trimester, Chlamydia infection affecting in second trimester Condition: Stable Disposition: HOME, SELF-CARE Additional Instructions: Gonorrhea You have been diagnosed with gonorrhea. In men, this germ infects the urethra (and sometimes the throat). Men usually have drainage from the penis and pain with urination. In women, the germ infects the vagina and fallopian tubes. There may be discharge and pelvic pain. Some women have no symptoms at all. The infection can do permanent damage to the tubes and ovaries. It should be taken very seriously. Treatment is antibiotics. It's important that you receive all recommended medication. Use condoms to prevent spread of the infection. Because this infection is spread sexually, your sexual partner must be checked before resuming sexual relations. If a culture shows gonorrhea germs, it must be reported to the health department. Call the doctor or return at once if you develop increasing fever, rash, joint swelling, severe pelvic pain, vaginal bleeding (other than your period), or problems with your bladder or bowels. Chlamydia You have a chlamydia infection. Chlamydia is a germ that grows inside the cells of the mucous membranes. It often infects the eyes, urethra, and fallopian tubes. It can cause chronic pain and scar tissue if untreated. Antibiotics are used to treat chlamydia. It's important to take all the medicine even if there are no symptoms. Use condoms to prevent spread of the infection. Because this infection can spread by sexual contact, it's important that your sexual partner be checked before resuming sexual relations. A positive test for chlamydia has to be reported to the health department. Call the doctor or return at once if you develop increasing fever, rash, severe pelvic pain, vaginal bleeding (other than your period), or problems with your bladder or bowels.
[2018-11-08 17:16] VITALS: BP 138/66
== END 2018-11-08 17:15 | disposition home or self-care (01) ==
LOC: ER 15:43
DX: O98.212 Gonorrhea complicating pregnancy, second trimester (principal); O98.312 Other infections with a predominantly sexual mode of transmission complicating pregnancy, second trimester; A56.8 Sexually transmitted chlamydial infection of other sites; O26.892 Other specified pregnancy related conditions, second trimester; N89.8 Other specified noninflammatory disorders of vagina; R10.2 Pelvic and perineal pain; O99.332 Smoking (tobacco) complicating pregnancy, second trimester; Z3A.20 20 weeks gestation of pregnancy
CPT/HCPCS: 99283; 96372; J3490; J0696

== ENCOUNTER 2018-12-04 11:59 | Outpatient (CLI) | payer SELFPAY | END 2018-12-04 14:25 | disposition home or self-care (01) | LOC: LC 11:59 | PROVIDERS: ATTEND Obstetrics & Gynecology | PROC: 4A1HXCZ Monitoring of Products of Conception, Cardiac Rate, External Approach (ICD-10-PCS; principal; 2018-12-04) | DX: O26.892 Other specified pregnancy related conditions, second trimester (principal); R10.9 Unspecified abdominal pain; Z3A.24 24 weeks gestation of pregnancy ==

== ENCOUNTER 2018-12-21 17:19 | Outpatient (CLI) | payer SELFPAY ==
[2018-12-21 18:36] LABS: T.VAGINALIS (WET MOUNT) TRICHOMONAS SEEN; WBCS (WET MOUNT) 1+ WBCS SEEN; YEAST (WET MOUNT) NO YEAST SEEN
[2018-12-21 18:37] LABS: BACTERIA (WET MOUNT) 3+ BACTERIA SEEN
[2018-12-21] MEDS ORDERED: METRONIDAZOLE 500 MG TABLET ONE (19:08)
[2018-12-21] MEDS ORDERED: METRONIDAZOLE 500 MG TABLET PO ONE (19:30)
[2018-12-21 20:11] LABS: CHLAM PCR NOT DETECTED (NOT DETECT); GON PCR NOT DETECTED (NOT DETECT)
== END 2018-12-21 19:55 | disposition home or self-care (01) ==
LOC: LC 17:19
PROVIDERS: ATTEND Obstetrics & Gynecology
PROC: 4A1HXCZ Monitoring of Products of Conception, Cardiac Rate, External Approach (ICD-10-PCS; principal; 2018-12-21)
DX: O47.02 False labor before 37 completed weeks of gestation, second trimester (principal); Z3A.27 27 weeks gestation of pregnancy
CPT/HCPCS: 87210; 87081; 87491; 87591; 59899; Q0114

== ENCOUNTER 2019-03-12 03:01 | Inpatient (IN) | payer MEDICAID ==
[2019-03-12 03:48] LABS: ABSOLUTE LYMPHOCYTES (AUTO) 1.8 10^3/uL (0.5-4.7); ABSOLUTE MONOCYTES (AUTO) 0.9 10^3/uL (0.1-1.4); ABSOLUTE NEUT (AUTO) 6.3 10^3/uL (1.7-8.2); BASOPHILS % (AUTO) 0.4 % (0-2); EOSINOPHILS % (AUTO) 0.3 % (0-6); HEMATOCRIT 37.8 % (36.0-47.0); HEMOGLOBIN 12.4 g/dL (12.0-15.5); LYMPHOCYTES % (AUTO) 19.9 % (13-45); MEAN CORPUSCULAR HEMOGLOBIN 28.2 pg (27.0-33.4); MEAN CORPUSCULAR VOLUME 86 fl (80-97); MONOCYTES % (AUTO) 9.9 % (3-13); PLATELET COUNT 133 10^3/uL (150-450); RED BLOOD COUNT 4.42 10^6/uL (3.72-5.28); RED CELL DISTRIBUTION WIDTH 14.9 % (11.5-14.0); SEGMENTED NEUTROPHILS % (AUTO) 69.5 % (42-78); TOTAL CELLS COUNTED % (AUTO) 100 %; WHITE BLOOD COUNT 9.1 10^3/uL (4.0-10.5)
[2019-03-12] MEDS ORDERED: CITRIC ACID/SODIUM CITRATE ORAL SOLN 15 ML UDCUP ONE (03:56)
[2019-03-12] MEDS ORDERED: CEFAZOLIN 1 GM/D5W RTU 2 GM/100 ML RTUPB IV ONE (03:56)
--- NOTE | 2019-03-12 04:07 | Admission Physical ---
Datetime Report Generated by CPN: 03/12/2019 04:07 CURRENT ADMISSION Chief Complaint: Suspected Ruptured Membranes Indication for Induction: Not Applicable Admit Impression : Term, Intrauterine ; Ruptured Membranes Admit Plan: Admit to Unit; Initiate Section Protocol ALLERGIES Medication Allergies: Yes Medication Allergies: ibuprofen/SV/Hives (12/21/2018); doxycycline/VOMITING (12/21/2018); tramadol (12/21/2018) Latex: No Latex Allergies OBSTETRICAL HISTORY EDC: 03/22/2019 00:00 : 4 Para: 2 Term: 0 : 2 SAB: 0 IAB: 0 Ectopic: 0 Livin Cesareans: 2 VBACs: 0 Multiple Births: 0 Gestational Diabetes: No Rh Sensitization: No Incompetent Cervix: Yes SATNAM: No Infertility: No ART Treatment: No Uterine Anomaly: No IUGR: Yes Hx Previous C/S: Yes Macrosomia: No Hx Loss/Stillborn: No PIH: No Hx : No Placenta Previa/Abruption: No Depression/PP Depression: No PTL/PROM: No Post Hemorrhage: No Current Procedures: Ultrasound Obstetrical History Comments: G1 - 19 week loss G2 - 34 week c/s G3 - 33 week c/s G4 - current SEE RECORDS Alcohol: No Marijuana : No Cocaine: No Other Illicit Drugs: No Cigarettes: Current Some Day Smoker. [id number] Cigarette Frequency: < 5 per day Cigarette Comments: 1 cigerette per day MEDICAL HISTORY Diabetes: No Blood Transfusion: No Pulmonary Disease (Asthma, TB): No Breast Disease: No Hypertension: No Medical Transport Specialist Surgery: No Heart Disease: No Hosp/Surgery: Yes Autoimmune Disorder: No Anesthetic Complications: No Kidney Disease: No Abnormal Pap Smear: Yes Neuro/Epilepsy: No Psychiatric Disorders: No Other Medical Diseases: No Hepatitis/Liver Disease: No Significant Family History: No Varicosities/Phlebitis: No Trauma/Violence : No Thyroid Dysfunction: No Medical History Comments: Ovarian cysts, laproscopic procedure, c/s x2 INFECTIOUS HISTORY Gonorrhea: Yes Genital Herpes: No Chlamydia: Yes Tuberculosis: No Syphilis: No Hepatitis: No HIV/AIDS Exposure: No Rash or Viral Illness: No HPV: No Infectious History Comments: 2016 - Gonorrhea, + GC + Chlam 2019 PHYSICAL EXAM General: Normal HEENT: Normal Neurologic: Normal Thyroid: Normal Heart: Normal Lungs: Normal Breast: Normal Back: Normal Abdomen: Normal Genitourinary Exam: Normal Extremities: Normal DTRs: Normal Pelvic Type: Adequate Vital Signs: Reviewed; Within Normal Limits VAGINAL EXAM Dilatation: 1 Effacement: 50 Station: -2 Contraction Comments: irregular MEMBRANES Pooling: Positive Membranes: Ruptured Amniotic Fluid Color: Clear FETUS A EGA: 38.4 Monitoring: External US FHR- Baseline: 160s Variability: Minimal - Undetectable to <=5bpm Accelerations: Absent Decelerations: None Admit Comment: This 28 yo w/an IUP at approx 38,4 weeks per LMP presents to L_D via ambulanace c/o "my water broke, which woke me up". She is c/o pressure. She is C/S x 2 and thompson d had NO PNC. Her cervical exam is 1 cm and елена q 2-4 minutes. She ate chicken nuggets at 11 pm. PLANS FOR LABOR AND DELIVERY Labor and Delivery: None Pain Management: Spinal Feeding Preference: Breast Benefit of Breast Feed Discussed: Yes Circumcision: N/A INFORMED CONSENT Signature: with User ID: [email or web address]
[2019-03-12] MEDS ORDERED: MORPHINE SULFATE 10 MG/ML INJ ONE (04:09)
[2019-03-12] MEDS ORDERED: OXYTOCIN 10 UNIT/ML VIAL ONE (04:09)
[2019-03-12] MEDS ORDERED: MIDAZOLAM 2 MG/2 ML INJ ONE ×2 (04:09→05:03)
[2019-03-12] MEDS ORDERED: OXYTOCIN/NORMAL SALINE 20 UNIT/1,000 ML RTUINJ ONE ×2 (04:09→05:41)
--- NOTE | 2019-03-12 04:34 | RADIOLOGY REPORT (SQ) ---
EXAM: Ultrasound limited CLINICAL DATA: 28-year-old female who has had no care. TECHNICAL DATA: Transabdominal ultrasound imaging was performed through the gravid uterus. This study was performed on 03/12/2019 at 3:54 AM COMPARISON: 11/07/2018. FINDINGS: ANATOMIC EVALUATION FETUS single POSITION cephalic HEART RATE 162 bpm AMNIOTIC FLUID minimal to no fluid identified as patient's water broke and is in active labor PLACENTA LOCATION anterior CERVIX: not identified on this examination. IMPRESSION: 1. Single living intrauterine in cephalic presentation at this time. The clinical gestational age is approximately 38 weeks four days. 2. Anterior placenta. 3. Little or no amniotic fluid identified as the patient's water broke and was in active labor at the time of the examination.
[2019-03-12 05:00] LABS: CHLAM PCR NOT DETECTED (NOT DETECT)
[2019-03-12] MEDS ORDERED: FENTANYL CITRATE INJ/PF 100 MCG/2 ML AMPUL ONE ×2 (05:10→06:52)
[2019-03-12] MEDS ORDERED: ONDANSETRON HCL INJ/PF 4 MG/2 ML SDV ONE (05:10)
--- NOTE | 2019-03-12 05:40 | PDOC DELIVERY SUMMARY ---
Delivery Summary - Maternal Hx : IV Hx Para: II Hx # Term Pregnancies: 2 Hx # Pregnancies: 1 Number of Living Children: 2 Gestational Age: 38.4 Risk Factors: No Care, Previous , Premature Rupture Membrane Ruptured Membranes: SROM Time of Rupture: 02:00 Fluids: Clear Fluid Description: clear - Delivery Presentation: Vertex Heart Rate Monitoring: Externally Uterine Contraction Monitoring: External Placenta: Within Normal Limits Placenta Description: Normal-appearing Number of Vessels (Cord): 3 Nuchal Cord: Yes Delivery of Placenta Date: 03/12/19 Estimated Blood Loss: 500 ml - Medications Type of Anesthesia:: Spinal - Delivery Personnel MD: LANDY BERRY
[2019-03-12] MEDS ORDERED: MEPERIDINE HCL/PF INJ 25 MG/1 ML DISP.SYRIN ONE (05:46)
[2019-03-12] MEDS ORDERED: SIMETHICONE 80 MG TAB.CHEW PO PRN (05:50)
[2019-03-12] MEDS ORDERED: OXYTOCIN/NORMAL SALINE 20 UNIT/1,000 ML RTUINJ IV PRN (05:50)
[2019-03-12] MEDS ORDERED: PROMETHAZINE HCL INJ 25 MG/1 ML VIAL IV PRN (05:50)
[2019-03-12] MEDS ORDERED: OXYCODONE-ACETAMINOPHEN 5-325 MG TABLET PO PRN (05:50)
[2019-03-12] MEDS ORDERED: RINGERS SOLUTION,LACTATED 1,000 ML IV PRN (05:50)
[2019-03-12] MEDS ORDERED: ACETAMINOPHEN 325 MG TABLET PO PRN (05:50)
[2019-03-12] MEDS ORDERED: DIPH/PERTUSS(ACELL)/TETANUS VAC/PF 0.5 ML SYR (>=10YO) IM PRN (05:50)
[2019-03-12] MEDS ORDERED: ACETAMINOPHEN 1,000 MG/100 ML RTUPB IV PRN (05:50)
--- NOTE | 2019-03-12 05:50 | Operative Report ---
Operative Report DATE OF SURGERY: 03/12/19 PREOPERATIVE DIAGNOSIS: 1. Intrauterine at 38-4/7 weeks. 2. Premat ure rupture of membranes. 3. Previous section x2. 4. No care. 5. GBS unknown. 6. Rh+. 7. Rubella immune POSTOPERATIVE DIAGNOSIS: Same OPERATION: Urgent repeat section SURGEON: LANDY PEMBERTON ANESTHESIA: Spinal TISSUE REMOVED OR ALTERED: Placenta COMPLICATIONS: None ESTIMATED BLOOD LOSS: 500 ml INTRAOPERATIVE FINDINGS: Female fetus with a cephalic plus nuchal cord x1 presentation at 0452; Apgars 8 at 1, 9 at 5 with a weight of 5 pounds 6 ounces; thin upper and lower uterine segment; normal bilateral tubes and ovaries; patient advised for safety reasons, not have any more sections PROCEDURE: The patient was taken to the operating room where spinal anesthesia was obtained and found to be adequate. She was then prepped and draped in the normal sterile fashion and placed in the dorsal supine position with a leftward tilt. A Pfannenstiel skin incision was then made and carried through to the underlying layers of the fascia with the scalpel. The fascia was incised in the midline and the incision extended laterally with the Padilla scissors. The superior aspect of the fascial incision was then grasped with Zaira clamps elevated and the underlying rectus muscles dissected off both bluntly and sharply. Attention was then turned to the inferior aspect of the fascial incision which in a similar fashion was grasped, tented up with Zaira clamps, and the rectus muscles dissected off both bluntly and sharply. The rectus muscles were then in the midline and the peritoneum was identified and entered both sharply and bluntly. The peritoneal incision was then extended superiorly and inferiorly with good visualization of the bladder. The bladder blade was inserted and the vesicouterine peritoneum identified grasped with [place]e pickups and entered sharply with the Metzenbaum scissors. This incision was then extended laterally with the Metzenbaum scissors and a bladder flap created digitally. The bladder blade was then reinserted and the lower uterine segment incised in a transverse fashion with the scalpel. It only took once pass with the scalpel to enter the uterus. The superior and inferior segments were both very thin. The uterine incision was then extended bluntly and with the bandage scissors. The bladder blade was removed and the 's head was delivered from cephalic presentation, atraumatically. The cord was doubly clamped and cut. The was handed off to waiting seismograph helper. The placenta was then delivered manually and the uterus exteriorized and cleared of all clots and debris. The uterine incision was then repaired with 0 Vicryl in a running locked fashion. 0-Chromic was used to obtain hemostasis via imbrication of the initial layer. The bladder flap was then repaired with 3-0 Vicryl in a running fashion. The uterus was returned to the patient's abdomen and Interceed was placed overlying the uterine incision, as well as a piece plac ed vertically on the anterior surface of the uterus, to prevent adhesions. The gutters were cleared of all clots and debris. All operative sites were noted to be hemostatic. The fascia was reapproximated with 0 Vicryl in a running fashion from each lateral edge to the midline. The skin was closed with 4-0 Monocryl in a running, subcuticular fashion. The patient tolerated the procedure well. Sponge, lap, needle and instrument counts are correct x 2. 2 g of Ancef were given prior to skin incision. The patient was taken to the recovery area awake and in stable condition.
[2019-03-12 05:56] LABS: APPEARANCE,URINE CLEAR; BILIRUBIN,URINE NEGATIVE (NEGATIVE); COLOR,URINE YELLOW; GLUCOSE, URINE NEGATIVE (NEGATIVE); KETONES,URINE TRACE mg/dL (NEGATIVE); LEUKOCYTE ESTERASE,URINE NEGATIVE (NEGATIVE); NITRITE,URINE NEGATIVE (NEGATIVE); PROTEIN,URINE 100 mg/dL (NEGATIVE); URINE SPECIFIC GRAVITY 1.018
[2019-03-12] MEDS ORDERED: PROMETHAZINE HCL INJ 25 MG/1 ML VIAL ONE (05:58)
[2019-03-12 06:11] LABS: URINE BARBITURATES SCREEN NEGATIVE; URINE BENZODIAZEPINES SCREEN NEGATIVE; URINE COCAINE SCREEN NEGATIVE; URINE METHADONE SCREEN NEGATIVE; URINE PHENCYCLIDINE SCREEN NEGATIVE
--- NOTE | 2019-03-12 06:20 | Warning Signs in Babies ---
VOD Warning Signs Datetime Report Generated by [facility]: 03/12/2019 06:20 VOD#608 -Warning Signs in Babies: Needs to be viewed. (03/12/2019 05:35:Lindsay Nieto RN)
[2019-03-12 06:24] LABS: URINE AMPHETAMINES SCREEN UNCONFIRMED POSITIVE; URINE MARIJUANA (THC) SCREEN UNCONFIRMED POSITIVE
--- NOTE | 2019-03-12 07:02 | Delivery Summary ---
Del Sum A-C Datetime Report Generated by CPN: 03/12/2019 07:02 DELIVERY PERSONNEL DELIVERY PERSONNEL: [id number] Delivery Doctor:: Kamla Dickson MD Anesthesiologist:: Nancy Jackson MD BUS STARTER:: Álvaro Wallace CRNA Labor and Delivery Nurse:: Lindsay Nieto RNmanager club Nurse:: Jessica Sommers RN Spare Hand:: Lindsay Nieto RN Neonatal Nurse Practitioner:: SAVI Larios Nursery Nurse:: Es Mccormack RN MSN Fitness Assistant/DRYING OVEN TENDER: Veronica Dunne, ST Fitness Assistant/DRYING OVEN TENDER: Tatyana Zurita, ST MATERNAL INFORMATION Delivery Anesthesia: Spinal Medications After Delivery: Pitocin Bolus-Please Comment Delivery QBL: 429 Maternal Complications: None LABOR SUMMARY EDC: 03/22/2019 00:00 No. Babies in Womb: 1 Attempted: No Labor Anesthesia: None LABOR INFORMATION Reason for Induction: Not Applicable Onset of Labor: 03/12/2019 02:30 Oxytocin: N/A Group B Beta Strep: 1 NO GROUP B STREPTOCOCCUS RECOVERED Antibiotics # of Doses: 0 Steroids Given: None Reason Steroids Not Administered: Not Applicable MEMBRANES Membranes Rupture Method: Spontaneous Rupture of Membranes: 03/12/2019 02:30 Length of Rupture (hr): 2.37 Amniotic Fluid Color: Clear Amniotic Fluid Amount: Scant Amniotic Fluid Odor: None STAGES OF LABOR Stage 3 hr: 0 Stage 3 min: 1 Total Time in Labor hr: 2 Total Time in Labor min: 23 VAGINAL DELIVERY Episiotomy: None Laceration #1: None Laceration Extension #1: N/A Laceration Repair: Not Applicable Sponge Count Correct: N/A CSECTION DELIVERY Primary Indication: Repeat Elective CSection Urgency: Non-Scheduled CSection Incidence: Repeat Labor: Labor Elective: Nonelective CSection Incision: Lower Uterine Transverse; J Extension of Incision BABY A INFORMATION Delivery Date/Time: 03/12/2019 04:52 Method of Delivery: Born in Route : No : N/A Forceps: N/A Vacuum Extraction: N/A Shoulder Dystocia : No PRESENTATION/POSITION BABY A Presentation: Cephalic Cephalic Presentation: Vertex Vertex Position: Right Occipital Anterior Breech Presentation: N/A PLACENTA INFORMATION BABY A Placenta Delivery Time : 03/12/2019 04:53 Placenta Method of Delivery: Manual Removal Placenta Status: Delivered SCORES BABY A Heart Rate 1 min: >100 bpm Resp Effort 1 min: Good Cry Reflex Irritability 1 min: Cough or Sneeze or Pulls Away Muscle Tone 1 min: Active Motion Color 1 min: Blue/Pale Resuscitation Effort 1 min: Tactile Stimulation SCORE 1 MIN: 8 Heart Rate 5 min: >100 bpm Resp Effort 5 min: Good Cry Reflex Irritability 5 min: Cough or Sneeze or Pulls Away Muscle Tone 5 min: Active Motion Color 5 min: Body [place], Extremities Blue Resuscitation Effort 5 min: Tactile Stimulation SCORE 5 MIN: 9 INFORMATION BABY A Gestational Age at Delivery: 38.4 Gestational Status: Early Term- 37- 38.6 Weeks Outcome : Liveborn Condition : Stable Sex: Female IDENTIFICATION BABY A Verification Date/Time: 03/12/2019 05:12 ID Band Number: [id number] Mother's Name Verified: Yes Infant RN Verifying Infant: Betty Fry RN, Kinsey Samaniego RN WEIGHT/LENGTH BABY A Birthweight (gm): 2440 Infant Weight (lb): 5 Infant Weight (oz): 6 Length (in): 19.00 Infant Length (cm): 48.26 CORD INFORMATION BABY A No. Cord Vessels: 3 Nuchal Cord : N/A Cord Blood Taken: Yes-For Storage (Mom's Blood type +) Suction: None ASSESSMENT BABY A Infant Complications: Decreased Variability Physical Findings at Delivery: Within Normal Limits Respirations: Appears Normal Skin to Skin: Yes Skin to Skin Time (min): 5 Cartographic Designer/ALS Called : Yes Care By: Jean Mccormack Transferred To: [facility] BABY B INFORMATION : N/A
[2019-03-12] MEDS ORDERED: HYDROMORPHONE HCL INJ/PF 2 MG/ML AMPULE ONE (07:43)
[2019-03-12] MEDS: HYDROMORPHONE HCL INJ/PF 2 MG/ML AMPULE IV PRN ×2 (07:44→10:51)
[2019-03-12] MEDS: DOCUSATE SODIUM 100 MG CAPSULE PO SCH ×2 (09:54→18:27)
[2019-03-12] MEDS: PRENATAL VITAMIN W DHA CAPSULE PO SCH (09:54)
[2019-03-12] MEDS: OXYCODONE-ACETAMINOPHEN 5-325 MG TABLET PO PRN ×3 (14:15→22:49)
[2019-03-13] MEDS: HYDROMORPHONE HCL INJ/PF 2 MG/ML AMPULE IV PRN (00:27)
[2019-03-13] MEDS: OXYCODONE-ACETAMINOPHEN 5-325 MG TABLET PO PRN ×5 (06:35→23:10)
[2019-03-13 06:51] LABS: HEMATOCRIT 36.5 % (36.0-47.0); HEMOGLOBIN 11.8 g/dL (12.0-15.5); MEAN CORPUSCULAR HEMOGLOBIN 27.8 pg (27.0-33.4); MEAN CORPUSCULAR HGB CONC 32.4 g/dL (32.0-36.0); MEAN CORPUSCULAR VOLUME 86 fl (80-97); PLATELET COUNT 137 10^3/uL (150-450); RED BLOOD COUNT 4.25 10^6/uL (3.72-5.28); RED CELL DISTRIBUTION WIDTH 14.9 % (11.5-14.0); WHITE BLOOD COUNT 13.2 10^3/uL (4.0-10.5)
[2019-03-13 07:06] LABS: HEPATITIS C VIRUS AB <0.1 s/co ratio (0.0-0.9)
[2019-03-13 07:17] LABS: HEPATITS B SURFACE ANTIGEN Negative (Negative)
--- NOTE | 2019-03-13 09:00 | PDOC PROGRESS REPORT ---
Subjective-OB Progress Note for:: 03/13/19 Subjective: States used Marijuana for nausea, took old RX for hydrocodone for back pain, and accidentally drank juice that had Adderall mixed in it-her friend gives her son Adderall this way. Physical Exam (OB) Vital Signs: Temp Pulse Resp BP Pulse Ox 98.0 F 58 L 16 123/75 100 03/13/19 07:38 03/13/19 07:38 03/13/19 07:38 03/13/19 07:38 03/13/19 07:38 Intake & Output 03/12/19 03/13/19 03/14/19 06:59 06:59 06:59 Intake Total 100 Output Total 1050 Balance -950 Weight 75.6 kg - PIH/Pre-Eclampsia Clonus: Negative Headache: Absent Epigastric Pain: No Visual Changes: No - Dressing Removed: No Incision: Dressing Closure Type: Sutures - Lochia Lochia Amount: Small 10-25 ml Lochia Color: Rubra/Red - Abdomen Description: Soft, Round Hernia Present: No Bowel Sounds: Normoactive Flatus Presence: Absent Stool: No Fundal Description: Firm, Midline Fundal Height: u/u - u/2 Objective-Diagnostic Laboratory: 03/13/19 06:40 03/13/19 06:40 WBC 13.2 H RBC 4.25 Hgb 11.8 L Hct 36.5 MCV 86 MCH 27.8 MCHC 32.4 RDW 14.9 H Plt Count 137 L
[2019-03-13] MEDS: PRENATAL VITAMIN W DHA CAPSULE PO SCH (10:56)
[2019-03-13] MEDS: DOCUSATE SODIUM 100 MG CAPSULE PO SCH ×2 (10:56→19:03)
[2019-03-14] MEDS: OXYCODONE-ACETAMINOPHEN 5-325 MG TABLET PO PRN ×3 (03:31→12:29)
--- NOTE | 2019-03-14 10:07 | PDOC PROGRESS REPORT ---
Subjective-OB Progress Note for:: 03/14/19 Subjective: Doing well, no c/o, OOB walking, pain under control, baby not going home, bottle feeding Physical Exam (OB) Vital Signs: Temp Pulse Resp BP Pulse Ox 98.3 F 53 L 16 118/74 100 03/14/19 07:29 03/14/19 07:29 03/14/19 07:29 03/14/19 07:29 03/14/19 07:29 Intake & Output 03/13/19 03/14/19 03/15/19 06:59 06:59 06:59 Intake Total 100 Output Total 1050 203 Balance -950 -203 - PIH/Pre-Eclampsia DTR's: 2 + Clonus: Negative Headache: Absent Epigastric Pain: No Visual Changes: No - Dressing Removed: No Incision: Dressing Closure Type: Surgical Glue - Lochia Lochia Amount: Small 10-25 ml Lochia Color: Rubra/Red - Abdomen Description: Soft, Round Hernia Present: No Fundal Description: Firm, Midline Fundal Height: u/u - u/2 Objective-Diagnostic Laboratory: 03/13/19 06:40 03/12/19 03:13 Vaginal/Anorectal Group B Streptococcus Culture - Final NO GROUP B STREPTOCOCCUS RECOVERED Assessment and Plan(PN) - Assessment and Plan (1) Positive urine drug screen Is this a current diagnosis for this admission?: Yes (2) Delivery by elective caesarean section Is this a current diagnosis for this admission?: Yes (3) Premature labor affecting fourth Is this a current diagnosis for this admission?: Yes - Time Spent with Patient Time with patient: Less than 15 minutes Medications reviewed and adjusted accordingly: Yes - Disposition Anticipated Discharge: Home Within: within 24 hours
--- NOTE | 2019-03-14 10:10 | PDOC DISCHARGE SUMMARY ---
Final Diagnosis Discharge Date: 03/14/19 - Final Diagnosis (1) Positive urine drug screen Is this a current diagnosis for this admission?: Yes (2) Delivery by elective caesarean section Is this a current diagnosis for this admission?: Yes (3) Premature labor affecting fourth Is this a current diagnosis for this admission?: Yes Discharge Data - Discharge Medication Prescriptions: Oxycodone HCl/Acetaminophen [Percocet 5-325 mg Tablet] 1 tab PO Q4HP PRN #20 tablet PRN Reason: Home Medications: Prenat 115/Iron Fum/Folic/Dss [ 19 Tablet] 1 tab PO DAILY 11/07/18 Oxycodone HCl/Acetaminophen [Percocet 5-325 mg Tablet] 1 tab PO Q4HP PRN #20 tablet 03/14/19 Gestational Age: 38.4 Reason(s) for Admission: Ceasarean Section-Repeat, PROM Procedures: NST, Ultrasound Intrapartum Procedure(s): : Low Cervical, Transverse - Diagnosis Test Laboratory: Temp Pulse Resp BP Pulse Ox 98.3 F 53 L 16 118/74 100 03/14/19 07:29 03/14/19 07:29 03/14/19 07:29 03/14/19 07:29 03/14/19 07:29 03/12/19 03/12/19 03/13/19 03:33 04:18 06:40 RBC 4.42 4.25 Hgb 12.4 11.8 L Hct 37.8 36.5 Urine Opiates Screen UNCONFIRMED POSITIVE - Discharge information/Instructions Discharge Activity: Activity As Tolerated, No Lifting Over 10 Pounds, No Lifting/Push/Pulling, Pelvic Rest Discharge Diet: As Tolerated, Regular Disposition: HOME, SELF-CARE Follow [facility] with: [facility] in: 7, Days
[2019-03-14] MEDS: DOCUSATE SODIUM 100 MG CAPSULE PO SCH (10:18)
[2019-03-14] MEDS: PRENATAL VITAMIN W DHA CAPSULE PO SCH (10:18)
[2019-03-14 11:50] VITALS: BP 130/68
[2019-03-14 15:03] LABS: RHOGAM DOSE INDICATED 0.31666 VIAL(S)
== END 2019-03-14 14:20 | disposition home or self-care (01) | DRG 787 ==
LOC: LC 03:01 → LR 03:57 → 2N 08:00
PROVIDERS: ADMIT Obstetrics & Gynecology; ATTEND Obstetrics & Gynecology
PROC: 10D00Z1 Extraction of Products of Conception, Low, Open Approach (ICD-10-PCS; principal; 2019-03-12)
PROC: 3E0234Z Introduction of Serum, Toxoid and Vaccine into Muscle, Percutaneous Approach (ICD-10-PCS; 2019-03-14)
DX: O42.92 Full-term premature rupture of membranes, unspecified as to length of time between rupture and onset of labor (principal); O99.324 Drug use complicating childbirth; O34.211 Maternal care for low transverse scar from previous cesarean delivery; Z3A.38 38 weeks gestation of pregnancy; Z37.0 Single live birth; O99.334 Smoking (tobacco) complicating childbirth; F17.210 Nicotine dependence, cigarettes, uncomplicated; O76 Abnormality in fetal heart rate and rhythm complicating labor and delivery; O99.824 Streptococcus B carrier state complicating childbirth; O69.81X0 Labor and delivery complicated by cord around neck, without compression, not applicable or unspecified; F12.90 Cannabis use, unspecified, uncomplicated; F11.90 Opioid use, unspecified, uncomplicated; F15.90 Other stimulant use, unspecified, uncomplicated; Z86.19 Personal history of other infectious and parasitic diseases; Z88.6 Allergy status to analgesic agent; Z23 Encounter for immunization
CPT/HCPCS: 1961; 36415; 59025; 76815; 80307; 80349; 80361; 81005; 84112; 85025; 85027; 85460; 86592; 86701; 86762; 86803; 86804; 86850; 86900; 86901; 87081; 87340; 87491; 87591; 88307; 90715; 94799; G0480; J0131; J0690; J1170; J2175; J2250; J2270; J2405; J2550; J2590; J3010; J3490

== ENCOUNTER 2019-09-25 08:43 | Emergency (ER) | payer MEDICAID ==
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
[2019-09-25 11:50] VITALS: BP 122/80
== END 2019-09-25 12:05 | disposition home or self-care (01) ==
LOC: ER 08:43
DX: S20.212A Contusion of left front wall of thorax, initial encounter (principal); R07.81 Pleurodynia; F17.210 Nicotine dependence, cigarettes, uncomplicated; Y04.0XXA Assault by unarmed brawl or fight, initial encounter; Z88.6 Allergy status to analgesic agent

== ENCOUNTER 2019-11-21 18:07 | Emergency (ER) | payer MEDICAID ==
[2019-11-21] MEDS ORDERED: ZIPRASIDONE MESYLATE INJ/PF 20 MG SDV IM ONE (19:01)
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
[2019-11-21 21:22] LABS: ABSOLUTE LYMPHOCYTES (AUTO) 1.3 10^3/uL (0.5-4.7); ABSOLUTE MONOCYTES (AUTO) 0.9 10^3/uL (0.1-1.4); ABSOLUTE NEUT (AUTO) 8.3 10^3/uL (1.7-8.2); BASOPHILS % (AUTO) 0.3 % (0-2); HEMATOCRIT 38.9 % (36.0-47.0); HEMOGLOBIN 12.9 g/dL (12.0-15.5); LYMPHOCYTES % (AUTO) 12.3 % (13-45); MEAN CORPUSCULAR HGB CONC 33.2 g/dL (32.0-36.0); MEAN CORPUSCULAR VOLUME 84 fl (80-97); MONOCYTES % (AUTO) 8.6 % (3-13); PLATELET COUNT 288 10^3/uL (150-450); RED BLOOD COUNT 4.61 10^6/uL (3.72-5.28); RED CELL DISTRIBUTION WIDTH 14.4 % (11.5-14.0); SEGMENTED NEUTROPHILS % (AUTO) 78.8 % (42-78); TOTAL CELLS COUNTED % (AUTO) 100 %; WHITE BLOOD COUNT 10.6 10^3/uL (4.0-10.5)
[2019-11-21 21:32] LABS: ACETAMINOPHEN < 10 ug/mL (10-30); ALBUMIN 4.9 g/dL (3.5-5.0); ALCOHOL < 10 mg/dL (NONE DETECTED); ALKALINE PHOSPHATASE 79 U/L (38-126); ANION GAP 10 (5-19); ASPARTATE AMINO TRANSFERASE 35 U/L (14-36); BILIRUBIN,DIRECT 0.1 mg/dL (0.0-0.4); BILIRUBIN,TOTAL 0.7 mg/dL (0.2-1.3); BLOOD UREA NITROGEN 18 mg/dL (7-20); CALCIUM 9.8 mg/dL (8.4-10.2); CARBON DIOXIDE 25 mmol/L (22-30); CHLORIDE 104 mmol/L (98-107); GLUCOSE 81 mg/dL (75-110); POTASSIUM 3.7 mmol/L (3.6-5.0); SALICYLATE < 1.0 mg/dL (2.0-20.0); TOTAL PROTEIN 8.2 g/dL (6.3-8.2)
[2019-11-22] MEDS ORDERED: LORAZEPAM 1 MG TABLET PO ONE (03:17)
[2019-11-22] MEDS ORDERED: ZIPRASIDONE MESYLATE INJ/PF 20 MG SDV IM ONE (03:17)
--- NOTE | 2019-11-22 07:56 | ER Document Report ---
Doctor's Note Notes: 11/22/19 03:00 I was called to the patient's bedside as she is acutely agitated. Attempts to verbally calm the patient down were unsuccessful. Medication ordered.
[2019-11-22 11:57] LABS: APPEARANCE,URINE CLOUDY; BILIRUBIN,URINE NEGATIVE (NEGATIVE); COLOR,URINE AMBER; GLUCOSE, URINE NEGATIVE (NEGATIVE); KETONES,URINE TRACE mg/dL (NEGATIVE); LEUKOCYTE ESTERASE,URINE LARGE (NEGATIVE); NITRITE,URINE NEGATIVE (NEGATIVE); PROTEIN,URINE >=500 mg/dL (NEGATIVE); URINE SPECIFIC GRAVITY 1.026
[2019-11-22 12:16] LABS: URINE BARBITURATES SCREEN NEGATIVE; URINE BENZODIAZEPINES SCREEN NEGATIVE; URINE METHADONE SCREEN NEGATIVE; URINE PHENCYCLIDINE SCREEN NEGATIVE
[2019-11-22 12:37] LABS: URINE COCAINE SCREEN UNCONFIRMED POSITIVE; URINE MARIJUANA (THC) SCREEN UNCONFIRMED POSITIVE
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
[2019-11-22] MEDS ORDERED: ACETAMINOPHEN 325 MG TABLET PO ONE (13:06)
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
[2019-11-22 13:37] VITALS: BP 112/64
--- NOTE | 2019-11-23 10:58 | EKG REPORT ---
SEVERITY:- ABNORMAL ECG - SINUS RHYTHM : Confirmed by: Gabby Willoughby 23-Nov-2019 10:57:18
== END 2019-11-22 14:00 | disposition home or self-care (01) ==
LOC: ER 18:07
DX: R41.82 Altered mental status, unspecified (principal); R45.1 Restlessness and agitation; F14.10 Cocaine abuse, uncomplicated; F15.10 Other stimulant abuse, uncomplicated; Z88.6 Allergy status to analgesic agent
CPT/HCPCS: 93005; 99285; 96372; 36415; 80307 ×4; 85025; 80053; 81001; 93010; J3490; J3486 ×2

== ENCOUNTER 2020-04-16 11:10 | Emergency (ER) | payer MEDICAID ==
[2020-04-16 11:59] VITALS: BP 125/61
--- NOTE | 2020-04-16 11:59 | ER Document Report ---
ED Medical Screen (RME) - General Stated Complaint: VAGINAL CRAMPING Time Seen by Provider: 04/16/20 11:54 Mode of Arrival: Ambulatory Information source: Patient Notes: Patient presents complaining of lower pelvic cramping for the past week. Patient reports positive test at home with last menstrual period 02/20/2020. Patient denies any vaginal bleeding or discharge. Patient denies any urinary symptoms. Patient states that with her last she was advised that she should not have any additional pregnancies due to her complications with that . I have greeted and performed a rapid initial assessment of this patient. A comprehensive ED assessment and evaluation of the patient, analysis of test results and completion of the medical decision making process will be conducted by additional ED providers. TRAVEL OUTSIDE OF THE [place] IN LAST 30 DAYS: No - Related Data Allergies/Adverse Reactions: ibuprofen [From Motrin] Allergy (Severe, Verified 09/25/19 09:10) Hives tramadol [Tramadol] Allergy (Unknown, Verified 09/25/19 09:10) doxycycline [Doxycycline] Adverse Reaction (Verified 09/25/19 09:10) VOMITING Past Medical History - Social History Chew tobacco use (# tins/day): No Frequency of alcohol use: None Drug Abuse: None Neurological Medical History: Reports: Hx Migraine Renal/ Medical History: Reports: Hx Ovarian Cysts Musculoskeltal Medical History: Reports Hx Musculoskeletal Trauma Psychiatric Medical History: Reports: Hx Anxiety Past Surgical History: Reports: Hx Abdominal Surgery - exploratory lap, Hx Section - 08/19/2009, 12/06/112018, Hx Gynecologic Surgery - Cervical cerclage x2 - Immunizations Immunizations up to date: Yes Hx Diphtheria, Pertussis, Tetanus Vaccination: Yes Physical Exam - Abdominal Tenderness: Tender - Lower pelvic tenderness
[2020-04-16 12:41] LABS: ABSOLUTE EOSINOPHILS # (AUTO) 0.2 10^3/uL (0.0-0.6); ABSOLUTE LYMPHOCYTES (AUTO) 2.1 10^3/uL (0.5-4.7); ABSOLUTE MONOCYTES (AUTO) 0.8 10^3/uL (0.1-1.4); ABSOLUTE NEUT (AUTO) 2.8 10^3/uL (1.7-8.2); APPEARANCE,URINE CLEAR; BASOPHILS % (AUTO) 0.3 % (0-2); BILIRUBIN,URINE NEGATIVE (NEGATIVE); COLOR,URINE YELLOW; EOSINOPHILS % (AUTO) 2.6 % (0-6); GLUCOSE, URINE NEGATIVE (NEGATIVE); HEMATOCRIT 36.8 % (36.0-47.0); HEMOGLOBIN 12.1 g/dL (12.0-15.5); KETONES,URINE NEGATIVE (NEGATIVE); LEUKOCYTE ESTERASE,URINE TRACE (NEGATIVE); LYMPHOCYTES % (AUTO) 35.9 % (13-45); MEAN CORPUSCULAR HEMOGLOBIN 27.5 pg (27.0-33.4); MEAN CORPUSCULAR HGB CONC 32.8 g/dL (32.0-36.0); MEAN CORPUSCULAR VOLUME 84 fl (80-97); MONOCYTES % (AUTO) 13.3 % (3-13); NITRITE,URINE NEGATIVE (NEGATIVE); PLATELET COUNT 271 10^3/uL (150-450); PROTEIN,URINE 30 mg/dL (NEGATIVE); RED CELL DISTRIBUTION WIDTH 15.6 % (11.5-14.0); SEGMENTED NEUTROPHILS % (AUTO) 47.9 % (42-78); TOTAL CELLS COUNTED % (AUTO) 100 %; URINE SPECIFIC GRAVITY 1.021; UROBILINOGEN,URINE NEGATIVE mg/dL (<2.0); WHITE BLOOD COUNT 5.8 10^3/uL (4.0-10.5)
[2020-04-16 12:56] LABS: ANION GAP 7 (5-19); BLOOD UREA NITROGEN 8 mg/dL (7-20); CALCIUM 9.3 mg/dL (8.4-10.2); CARBON DIOXIDE 27 mmol/L (22-30); CHLORIDE 103 mmol/L (98-107); GLUCOSE 78 mg/dL (75-110); POTASSIUM 3.9 mmol/L (3.6-5.0)
[2020-04-16 14:02] LABS: CHLAM PCR NOT DETECTED (NOT DETECT)
== END 2020-04-16 13:50 | disposition left against medical advice (07) ==
LOC: ER 11:10
DX: Z53.20 Procedure and treatment not carried out because of patient's decision for unspecified reasons (principal); R10.2 Pelvic and perineal pain; Z88.8 Allergy status to other drugs, medicaments and biological substances
CPT/HCPCS: 36415; 80048; 81001; 84702; 85025; 87491; 87591; 99281